=== PATIENT | female | born 1935 | race Caucasian/White ===

== ENCOUNTER → 2019-07-09 | Outpatient (CLI) | payer MEDICARE, BC ==
[~2019-07-09] MED LIST: CHLO25TA10 PO; IOHEXOL 180 MG/ML 10 ML VIAL. ONE; LEVO50TA5 PO; LISI10TA2 PO; POTA20TA4 PO; methylPREDNISolone ACETATE 40 MG/ML VIAL. ONE; methylPREDNISolone ACETATE 80 MG/ML VIAL. ONE
--- NOTE | 2019-07-09 13:46 | PAIN ---
DATE OF SERVICE: INITIAL CONSULTATION FOR PAIN CLINIC CHIEF COMPLAINT: Low back and left lower extremity pain. HISTORY OF PRESENT ILLNESS: This is an 83-year-old female who presents with history of pain in the low back, left lower extremity since about 04/2019. No specific injury or action that she is aware of, but increasing pain with walking and standing, especially in the low back, left hip, posterior gluteus, posterior thigh, into the knee and into the calf at times. She reports it is painful, aching, dull, sharp and shooting. She was using a compression stocking at home, what she uses on both of her legs and became more and more painful with time, better without using it, but still significant pain even with prolonged sitting. The patient reports it is much worse with weightbearing, standing, even for a few seconds, the pain begins to return in the low back and the left leg. It was on the right as well, but the right has gotten better with time. The patient reports it awakens her from sleep very rarely, is much, much better with sitting or lying down, worse with walking, standing, changing positions. She is using a wheelchair today to get around. The patient reports it does impede her activities of daily living significantly and impedes her ability to walk significantly. She uses a cane or wheelchair when one is available. The patient has not had any formal physical therapies at this point, any chiropractic treatments or other modalities. She is doing some stretching on her own, not taken any pain medication currently. She is taking some Tylenol in the past, but was not significantly helping the pain as well. The patient rates her pain as only present with standing or walking, weightbearing and prolonged sitting. The patient did have MRI scan of the lumbar spine showing marked narrowing of disk space at L3-L4 as well as L4-L5 and L5-S1 with marked degenerative changes endplate disk and facet joints, right lateral recess and neural foraminal stenosis at L4-L5 with flattening of the ventral thecal sac and L5-S1 shows circumferential bulging annulus with contacting the exiting L5 nerve roots bilaterally as well. PAST MEDICAL HISTORY: Significant for hypertension, hearing loss, wears hearing aid in the left ear, history of skin cancer in the past. PREVIOUS SURGERY: Include cataract extraction, appendectomy, cholecystectomy, hysterectomy, eye surgery as a child. CURRENT MEDICATIONS: Include levothyroxine, lisinopril, chlorthalidone, and potassium. ALLERGIES: THE PATIENT IS ALLERGIC TO MORPHINE AND CODEINE. FAMILY HISTORY: Significant for hypertension. SOCIAL HISTORY: The patient does not drink alcohol, does not smoke, does not use any illegal, illicit or recreational drugs. He is and lives locally in [place], [place]. 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 REVIEW OF SYSTEMS: The patient's review of systems is positive for those items mentioned in history of present illness. All systems reviewed and otherwise negative. It is complete, full and well documented on the patient's chart. PHYSICAL EXAMINATION: VITAL SIGNS: The patient's blood pressure is 131/55, pulse 50, respirations are 18, temperature is 98.1 degrees Fahrenheit. Height is 5 feet 4 inches, weight 145 pounds. GENERAL: The patient is awake, alert, oriented, appropriate, very pleasant demeanor. HEENT: Normocephalic, atraumatic. Extraocular movements are intact and symmetrical. Oral cavity: Mucous membranes moist and pink. Dentition is intact. NECK: Shows anterior throat supple without palpable lymphadenopathy noted. Swallow reflex symmetrical. CHEST: Shows normal on inspection. Breath sounds clear bilaterally. HEART: Shows S1, S2 clear. No murmurs auscultated. ABDOMEN: Soft, nontender, nondistended. No palpable organomegaly is noted. There is no rebound or guarding demonstrated. BACK: Shows spine grossly in the midline, normal-appearing cervical lordotic curvature. Some slight increase in thoracic kyphosis and some slight flattening of lumbar lordotic curvature. Lumbar paraspinous muscle shows symmetrical on inspection, on palpation shows some moderate tenderness diffusely bilaterally, but only diffusely without significant radiation. No tenderness over the spinous processes, sacrum or sacroiliac regions with direct palpation. The patient has good rotational motion of lumbar spine, both laterally greater than 10 degrees right and left as well as extension greater than 10 degrees, forward flexion 45 degrees without significant pain reported. EXTREMITIES: The patient's lower extremities show deep tendon reflexes at 1+ in the patellar and tendo calcaneus tendons are equal. Motor exam is strong with 5/5 dorsiflexion, extension, quadriceps and hamstring flexion symmetrical. Peripheral pulses are 1+ posterior tibia, is about 2 to 3+ pitting edema at the bilateral ankles extending about 2/3 distance on the anterior tibia bilaterally. Lower extremities are warm and dry to touch, equal in color and appearance. The patient is able to stand, but requires significant assistance getting out of the chair, uses both the arms of the chair and is unstable on her feet. Does have a significant favoring gait, favoring the left lower extremity even for a very short walk in the office today. The patient's skin shows warm and dry, good turgor. No sores, rashes or bruising. No other edema. No cyanosis in the lower extremities. IMPRESSION: 1. This is an 83-year-old female with approximate 2-month history of low back and left lower extremity pain greater than right in a radicular fashion. 2. MRI scan of lumbar spine as noted. 3. Hypertension. PLAN: Options were discussed with the patient and the patient's son who accompanied her visit today including conservative medical managements, physical therapies and interventional techniques. She would like to pursue interventional techniques. We discussed a lumbar epidural steroid injection using description as well as anatomical models to describe the procedure. Risks were then discussed including, but not limited to bleeding, infection, possibility of epidural hematoma, subsequent neurological compromise, dural puncture, headaches, spinal cord and/or nerve damage, side effects of steroid medication and poor results regarding pain control. The patient understands and wished to proceed. The patient will return to the clinic in approximately 2 weeks for followup. She was counseled on return appointment, activity level and side effects to be aware of. DIAGNOSES: Lumbar radiculopathy with lumbar degenerative disk disease, lumbar spinal stenosis. PROCEDURE: Lumbar epidural steroid injection, translaminar approach L5-S1 level using C-arm fluoroscopic guidance under sterile prep and drape using local anesthetic. MEDICATION INJECTED: A total of 120 mg Depo-Medrol plus 10 mL of preservative-free normal saline and 2 mL of contrast. CONDITION AT DISCHARGE: Stable. The patient tolerated the procedure well, had no complications. TOM PANCHAL MD DR: JALYN/tomasa JOB#: [id number] / [id number] RONEL Suazo MD
== END ==
LOC: PNCL 10:56
PROVIDERS: ATTEND Anesthesiology
DX: M51.16 Intervertebral disc disorders with radiculopathy, lumbar region (principal); M48.061 Spinal stenosis, lumbar region without neurogenic claudication; I10 Essential (primary) hypertension; Z98.42 Cataract extraction status, left eye; Z98.41 Cataract extraction status, right eye; Z96.1 Presence of intraocular lens; Z90.49 Acquired absence of other specified parts of digestive tract; Z90.710 Acquired absence of both cervix and uterus; Z88.6 Allergy status to analgesic agent; Z88.5 Allergy status to narcotic agent; Z85.828 Personal history of other malignant neoplasm of skin
CPT/HCPCS: 62323; J1030; J1040; Q9965

== ENCOUNTER → 2019-07-23 | Outpatient (CLI) | payer MEDICARE, BC ==
[~2019-07-23] MED LIST changes: -IOHEXOL 180 MG/ML 10 ML VIAL. ONE; -methylPREDNISolone ACETATE 40 MG/ML VIAL. ONE; -methylPREDNISolone ACETATE 80 MG/ML VIAL. ONE
--- NOTE | 2019-07-23 11:41 | PAIN ---
DATE OF SERVICE: 07/23/2019 PROGRESS NOTE FOR PAIN CLINIC DIAGNOSES: Lumbar radiculopathy with lumbar degenerative disk disease and lumbar spinal stenosis. HISTORY OF PRESENT ILLNESS: The patient is an 83-year old female, who returns for followup status post lumbar epidural steroid injection x 1. The patient reports about 85% improvement overall. The patient reports increasing her activity with greater ease and comfort. She has been much more restless as she feels better and wants to do more things to the point of walking, standing, climbing stairs, but sleeping much better at night. The patient reports only some pain in the left posterior hip and thigh now and not as much in the lower leg. The patient reports this is fairly well resolved in the lower leg, but the hip and thigh still has some moderate pain. The patient reports it is a 5 on a scale of 10 at its worst over the past week, 4 on average, 2 at its least and is a 2 today. The patient reports it is better with sitting or lying down. It does not awaken her from sleep at night. She is overall very much pleased with her progress thus far. Reports that she has been walking greater distances, doing household activities, traveling to some degree, still better traveling with walking with her cane that is in her right hand. The patient reports no new motor or sensory deficits. Describes the pain as occasionally sharp in the left hip and leg, but again only intermittent. PHYSICAL EXAMINATION: VITAL SIGNS: The patient's blood pressure 157/81, pulse 71, respirations 18, temperature is 97.2 degrees Fahrenheit, height is 5 feet 4 inches, weight is 156 pounds. GENERAL: The patient is awake, alert, oriented, appropriate. She has very pleasant demeanor. The patient is accompanied by her son. HEENT: Shows normocephalic, atraumatic. Extraocular movements are intact and symmetrical. Oral cavity: Mucous membranes are moist and pink. Dentition is intact. NECK: Shows anterior throat supple without palpable lymphadenopathy noted. Swallow reflex symmetrical. CHEST: Shows normal on inspection. Breath sounds are clear bilaterally. HEART: Shows S1, S2 clear. No murmurs auscultated. ABDOMEN: Soft, nontender, nondistended. No palpable organomegaly is noted. No rebound or guarding demonstrated. BACK: Shows spine grossly in the midline. Normal-appearing thoracic kyphosis and minor flattening of lumbar lordotic curvature. Lumbar paraspinous muscle shows symmetrical on inspection, on palpation shows some moderate tenderness diffusely bilaterally, but only diffusely without significant radiation. The patient has good rotational motion of lumbar spine, both laterally as well as extension and flexion without significant difficulty. EXTREMITIES: Lower extremities show deep tendon reflexes at 1+ in the patellar and tendo-calcaneus tendons. Motor exam is 5/5 with dorsiflexion, extension, quadriceps and hamstring flexion symmetrical. Peripheral pulses are 1+ posterior tibia. No peripheral edema bilaterally. Options were discussed with the patient. The patient's old chart was reviewed as her current medication regimen updated. Current review of systems updated today as well. We will proceed with holding any further injections at this time as the patient is doing quite a bit better and would like to increase her activity as tolerated. I encouraged her to do some stretching and strengthening exercises during the day as well as walking and consistent physical activity as tolerated with her cane. The patient understands and agrees. Will follow up at this time on as-needed basis. TOM PANCHAL MD DR: JALYN/tomasa JOB#: [id number] / [id number]
== END | disposition home or self-care (01) ==
LOC: PNCL 10:51
PROVIDERS: ATTEND Anesthesiology
DX: M51.16 Intervertebral disc disorders with radiculopathy, lumbar region (principal); M48.061 Spinal stenosis, lumbar region without neurogenic claudication
CPT/HCPCS: G0463